=== PATIENT | female | born 1990 | race Caucasian/White ===

== ENCOUNTER 2019-03-08 16:34 | Emergency (ER) | payer OTHER ==
[~2019-03-08] VITALS: Ht 154.9 cm; Wt 54.4 kg
[2019-03-08 16:42] VITALS: BP 120/76
[2019-03-08] MEDS ORDERED: ALLEGRA-D 24 H1 EACH PO (16:51)
[2019-03-08] MEDS ORDERED: FLONASE 0.05%50 MCG NASAL (16:51)
== END 2019-03-08 17:05 | disposition home or self-care (01) ==
LOC: M.ERS 16:34
DX: J30.9 Allergic rhinitis, unspecified (principal)